=== PATIENT | male | born 1955 | race Caucasian/White ===

== ENCOUNTER 2018-06-23 08:54 | Inpatient (IN) | payer BC, MEDICARE ==
[~2018-06-23] VITALS: Ht 162.6 cm; Wt 88.0 kg
[~2018-06-23 08:54] MED LIST: ALLO100 PO; ASCO500 PO; AZELASTINE137 MCG/0.; Accuretic 10-11 EACH; CEPH500 PO; DIPH50 PO; FLONASE ALLERG9.9 ML NS; Flovent Diskus50 MCG; MOMENI; MULVITMIND; NAPR500EC; NIFE60ER; OXYACE5T PO; OXYM.05NI; PRED20 PO; PREVACID; Percocet 5-3251 EACH PO; Prevacid15 M2; TEMA30; TOCO400 PO; ZOLP10; [UNRECOGNIZED DRUG - REMARK]; [UNRECOGNIZED DRUG - REMARK]; [UNRECOGNIZED DRUG - REMARK]
[2018-06-23 09:20] LABS: Calcium, Ionized (POC) 1.15 mmol/L (1.10-1.46); Chloride (POC) 98 mmol/L (98-108); Glucose (ISTAT POC) 125 mg/dL (70-99); Sodium (POC) 138 mmol/L (135-148); Total CO2 (POC) 26 mmol/L (21-32)
[2018-06-23 09:25] LABS: Hematocrit 48.5 % (37.0-53.0); Hemoglobin 17.1 g/dL (13.5-17.5); Mean Corpuscular HGB 32.3 pg (26.0-34.0); Mean Corpuscular HGB Conc 35.3 g/dL (31.5-36.5); Mean Corpuscular Volume 92 fL (80-100); Mean Platelet Volume 10.2 fL (9.1-12.4); Platelet Count 221 K/mm3 (150-400); RDW Coefficient Variation 12.2 % (11.7-14.2); RDW Standard Deviation 40.8 fL (35.1-46.3); White Blood Cell Count 10.65 K/mm3 (4.00-11.30)
[2018-06-23 09:41] LABS: Alanine Aminotransfer (ALT/SGP 40 U/L (12-78); Albumin, Blood 3.9 g/dL (3.4-5.0); Albumin/Globulin Ratio 0.8 (0.8-1.8); Alk Phos 60 U/L (50-136); Anion Gap 9 mmol/L (6-16); Aspartate Aminotrans (AST/SGOT 38 U/L (12-37); Bilirubin, Total 0.5 mg/dL (0.1-1.0); Blood Urea Nitrogen 20 mg/dL (8-24); Bun/Creatinine Ratio 22.3 (12.0-20.0); CHOL/HDL RATIO 3.7; CO2, Blood 28 mmol/L (21-32); Calcium, Blood 9.8 mg/dL (8.5-10.1); Chloride, Blood 101 mmol/L (98-108); Cholesterol 148 mg/dL (50-200); Globulin, Blood 4.8 g/dL (2.2-4.0); Glomerular Filtration Rate >60 (60-); Glucose, Blood 122 mg/dL (70-99); HDL Cholesterol 40 mg/dL (>39); International Normalized Ratio 1.01; LDL/HDL RATIO 2.1; Low Density Lipoprotein Chol 84 mg/dL (0-110); Magnesium, Blood 1.9 mg/dL (1.6-2.4); Potassium, Blood 4.1 mmol/L (3.5-5.5); Prothrombin Time Results 10.4 Sec (9.7-11.5); Sodium, Blood 138 mmol/L (136-145); Total Protein, Blood 8.7 g/dL (6.4-8.2); Triglycerides 122 mg/dL (30-160); Very Low Density Lipoprot Chol 24 mg/dL (6-32)
[2018-06-23] MEDS ORDERED: PROP10 PO (11:59)
[2018-06-23] MEDS ORDERED: GABA100 PO (12:00)
[2018-06-23] MEDS ORDERED: VERA120ERB PO (12:06)
[2018-06-23] MEDS ORDERED: BUTONI (12:08)
[2018-06-23] MEDS ORDERED: XARELTO20 MG PO (12:09)
[2018-06-23] MEDS ORDERED: ZESTORETIC 20-121 EA PO (12:19)
[2018-06-23] MEDS ORDERED: LISI20 PO (12:20)
[2018-06-23] MEDS ORDERED: Lipitor20 MG PO (12:20)
[2018-06-23] MEDS ORDERED: LANS30EC PO (12:22)
[2018-06-23] MEDS ORDERED: Hair, Skin & N1 EACH PO (12:25)
[2018-06-23] MEDS ORDERED: SOMA350 MG PO (12:26)
[2018-06-23 17:44] LABS: CHOL/HDL RATIO 3.4; Cholesterol 131 mg/dL (50-200); HDL Cholesterol 39 mg/dL (>39); LDL/HDL RATIO 1.8; Low Density Lipoprotein Chol 72 mg/dL (0-110); Triglycerides 100 mg/dL (30-160); Very Low Density Lipoprot Chol 20 mg/dL (6-32)
[2018-06-26 03:44] LABS: BASOPHILS ABSOLUTE AUTO 0.04 K/mm3 (0.00-0.23); BASOPHILS PERCENT AUTO 1 % (0-2); EOSINOPHILS ABSOLUTE AUTO 0.17 K/mm3 (0.00-0.68); EOSINOPHILS PERCENT AUTO 2 % (0-6); Hematocrit 46.1 % (37.0-53.0); Hemoglobin 15.4 g/dL (13.5-17.5); IMMATURE GRAN ABSOLUTE AUTO 0.05 K/mm3 (0.00-0.10); IMMATURE GRAN PERCENT AUTO 1 % (0-1); LYMPHOCYTES ABSOLUTE AUTO 3.25 K/mm3 (0.84-5.20); LYMPHOCYTES PERCENT AUTO 37 % (21-46); MONOCYTES ABSOLUTE AUTO 0.87 K/mm3 (0.16-1.47); MONOCYTES PERCENT AUTO 10 % (4-13); Mean Corpuscular HGB 31.5 pg (26.0-34.0); Mean Corpuscular HGB Conc 33.4 g/dL (31.5-36.5); Mean Corpuscular Volume 94 fL (80-100); NEUTROPHILS ABSOLUTE AUTO 4.39 K/mm3 (1.96-9.15); NEUTROPHILS PERCENT AUTO 50 % (41-73); Platelet Count 178 K/mm3 (150-400); RDW Coefficient Variation 12.6 % (11.7-14.2); RDW Standard Deviation 43.3 fL (35.1-46.3); Red Blood Cell Count 4.89 M/mm3 (4.30-5.90); White Blood Cell Count 8.77 K/mm3 (4.00-11.30)
[2018-06-26 04:03] LABS: Alanine Aminotransfer (ALT/SGP 33 U/L (12-78); Albumin, Blood 3.3 g/dL (3.4-5.0); Albumin/Globulin Ratio 0.8 (0.8-1.8); Alk Phos 47 U/L (50-136); Anion Gap 8 mmol/L (6-16); Aspartate Aminotrans (AST/SGOT 29 U/L (12-37); Bilirubin, Total 0.4 mg/dL (0.1-1.0); Blood Urea Nitrogen 26 mg/dL (8-24); Bun/Creatinine Ratio 24.3 (12.0-20.0); CO2, Blood 30 mmol/L (21-32); Calcium, Blood 9.1 mg/dL (8.5-10.1); Chloride, Blood 105 mmol/L (98-108); Creatinine, Blood 1.07 mg/dL (0.60-1.20); Globulin, Blood 4.1 g/dL (2.2-4.0); Glomerular Filtration Rate >60 (60-); Glucose, Blood 93 mg/dL (70-99); Potassium, Blood 4.2 mmol/L (3.5-5.5); Sodium, Blood 143 mmol/L (136-145); Total Protein, Blood 7.4 g/dL (6.4-8.2)
[2018-06-26] MEDS ORDERED: CLOP75 PO (10:59)
[2018-06-26] MEDS ORDERED: ASPI81CH PO (10:59)
[2018-06-26] MEDS ORDERED: NITR.4SL SL (11:00)
[2018-06-26] MEDS ORDERED: METO25ER PO (11:04)
== END 2018-06-26 12:30 | disposition home or self-care (01) | DRG 247 ==
LOC: ER 08:54 → ICUW 09:12 → ICUE 09:12 → PCU 09:12 → ICUE 11:05 → PCU 06-24 15:40
PROVIDERS: Emergency Medicine; Internal Medicine; Internal Medicine Cardiovascular Disease
PROC: 027034Z Dilation of Coronary Artery, One Artery with Drug-eluting Intraluminal Device, Percutaneous Approach (ICD-10-PCS; principal; 2018-06-23)
PROC: 02703ZZ Dilation of Coronary Artery, One Artery, Percutaneous Approach (ICD-10-PCS; 2018-06-23)
PROC: 4A023N7 Measurement of Cardiac Sampling and Pressure, Left Heart, Percutaneous Approach (ICD-10-PCS; 2018-06-23)
PROC: B2111ZZ Fluoroscopy of Multiple Coronary Arteries using Low Osmolar Contrast (ICD-10-PCS; 2018-06-23)
PROC: B2151ZZ Fluoroscopy of Left Heart using Low Osmolar Contrast (ICD-10-PCS; 2018-06-23)
PROC: B240ZZ3 Ultrasonography of Single Coronary Artery, Intravascular (ICD-10-PCS; 2018-06-23)
DX: I21.19 ST elevation (STEMI) myocardial infarction involving other coronary artery of inferior wall (principal); I25.10 Atherosclerotic heart disease of native coronary artery without angina pectoris; G43.909 Migraine, unspecified, not intractable, without status migrainosus; I10 Essential (primary) hypertension; I48.0 Paroxysmal atrial fibrillation; I49.5 Sick sinus syndrome; E78.5 Hyperlipidemia, unspecified; M10.9 Gout, unspecified; B19.20 Unspecified viral hepatitis C without hepatic coma; Z91.041 Radiographic dye allergy status; Z86.73 Personal history of transient ischemic attack (TIA), and cerebral infarction without residual deficits; Z86.718 Personal history of other venous thrombosis and embolism; Z87.891 Personal history of nicotine dependence; Z79.01 Long term (current) use of anticoagulants; Z79.899 Other long term (current) drug therapy
CPT/HCPCS: 36415; 80047; 80053; 80061; 83735; 84484; 85014; 85025; 85027; 85347; 85610; 85730; 86850; 86900; 86901; 92978; 93005; 93010; 93306; 93458; 94660; 94762; 96374; 96375; 99152; 99153; 99285-25; C1725; C1753; C1769; C1874; C1894; C9606; J0461; J1100; J1200; J1644; J2250; J2765; J3010; J3475; J7030; Q0163; Q9967

== ENCOUNTER 2019-02-19 07:09 | Inpatient (IN) | payer BC, MEDICARE ==
[~2019-02-19] VITALS: Ht 160 cm; Wt 87.9 kg
[~2019-02-19 07:09] MED LIST changes: +ASPI81CH PO; +ATOR80 PO; +BUTONI; +CLOP75 PO; +GABA100 PO; +Hair, Skin & N1 EACH PO; +LANS30EC PO; +LISI20 PO; +METO100ER PO; +NITR.4SL SL; +PROP10 PO; +SOMA350 MG PO; +VERA120ERB PO; +XARELTO20 MG PO; +ZESTORETIC 20-121 EA PO
[2019-02-19 07:43] LABS: BASOPHILS ABSOLUTE AUTO 0.04 K/mm3 (0.00-0.23); BASOPHILS PERCENT AUTO 1 % (0-2); EOSINOPHILS ABSOLUTE AUTO 0.13 K/mm3 (0.00-0.68); EOSINOPHILS PERCENT AUTO 2 % (0-6); Hematocrit 42.3 % (37.0-53.0); Hemoglobin 14.8 g/dL (13.5-17.5); IMMATURE GRAN ABSOLUTE AUTO 0.03 K/mm3 (0.00-0.10); IMMATURE GRAN PERCENT AUTO 0 % (0-1); LYMPHOCYTES ABSOLUTE AUTO 2.19 K/mm3 (0.84-5.20); LYMPHOCYTES PERCENT AUTO 29 % (21-46); MONOCYTES ABSOLUTE AUTO 0.82 K/mm3 (0.16-1.47); MONOCYTES PERCENT AUTO 11 % (4-13); Mean Corpuscular HGB 32.5 pg (26.0-34.0); Mean Corpuscular Volume 93 fL (80-100); NEUTROPHILS ABSOLUTE AUTO 4.48 K/mm3 (1.96-9.15); NEUTROPHILS PERCENT AUTO 58 % (41-73); Platelet Count 163 K/mm3 (150-400); RDW Coefficient Variation 12.5 % (11.7-14.2); RDW Standard Deviation 42.8 fL (35.1-46.3); Red Blood Cell Count 4.56 M/mm3 (4.30-5.90); White Blood Cell Count 7.69 K/mm3 (4.00-11.30)
[2019-02-19 08:41] LABS: Troponin I <0.015 ng/mL (0.000-0.040)
[2019-02-19 08:42] LABS: Alanine Aminotransfer (ALT/SGP 37 U/L (12-78); Albumin, Blood 3.6 g/dL (3.4-5.0); Alk Phos 50 U/L (50-136); Anion Gap 9 mmol/L (6-16); Aspartate Aminotrans (AST/SGOT 27 U/L (12-37); Bilirubin, Total 0.3 mg/dL (0.1-1.0); Blood Urea Nitrogen 27 mg/dL (8-24); Bun/Creatinine Ratio 32.3 (12.0-20.0); CO2, Blood 28 mmol/L (21-32); Calcium, Blood 8.7 mg/dL (8.5-10.1); Chloride, Blood 103 mmol/L (98-108); Creatinine, Blood 0.84 mg/dL (0.60-1.20); Globulin, Blood 3.5 g/dL (2.2-4.0); Glomerular Filtration Rate >60 (60-); Glucose, Blood 113 mg/dL (70-99); Potassium, Blood 3.8 mmol/L (3.5-5.5); Sodium, Blood 140 mmol/L (136-145); Total Protein, Blood 7.1 g/dL (6.4-8.2)
[2019-02-19 10:11] LABS: Source, Urine Voided
[2019-02-19 10:14] LABS: Appearance, Urine Clear (Clear); Bilirubin, Urine Neg (Neg); Blood, Urine Neg (Neg); Color, Urine Yellow (P-Yellow); Glucose Qualitative, Urine Neg (Neg); Ketones, Urine Neg (Neg); Leukocyte Esterase, Urine Neg (Neg); Nitrite, Urine Neg (Neg); Protein, Urine Neg (Neg); Specific Gravity, Urine 1.015 (1.003-1.022); Urobilinogen, Urine NORM (Normal)
[2019-02-19] MEDS ORDERED: HYDCHL25 PO (12:20)
[2019-02-19] MEDS ORDERED: ATOR80 PO (12:21)
--- NOTE | 2019-02-19 13:52 | NUR ---
ASSUMED CARE ASSUMED CARE OF PT APPROX [id number]. PT ARRIVED TO UNIT VIA GURNEY. PT ABLE TO AMBULATE FROM GURNERY TO BED. ORIENTED PT TO ROOM, UNIT, AND POLICIES. ADDMISSION PROCESS COMPLETED. ASSESSMENT COMPLETED. VITAL SIGNS STABLE. PT HEART RHYTHM SINUS ANJELICA WITH HEART RATE IN 50'S. PT DENIES ANY CHEST PAIN AT THIS TIME. NO S/SX OF ACUTE DISTRESS. AT BEDSIDE. BED IN LOW POSITION, CALL LIGHT IN REACH AND PT DENIES ANY NEEDS AT THIS TIME. WILL CONTINUE TO MONITOR.
--- NOTE | 2019-02-19 14:59 | NUR ---
DISCHARGE DISCHARE INFORMATION REVIEWED WITH PATIENT AND FAMILY. QUESTIONS ANSWERED. NO S/SX OF ACUTE DISTRESS. PT STABLE. PT ABLE TO AMBULATE FROM BED TO WHEELCHAIR. LABOR TRAINING MANAGER TO AUTOMOBILE VIA WHEELCHAIR BY PEER STAFF MEMBER APPROX. [id number]
--- NOTE | 2019-02-19 17:51 | NUR ---
SHIFT SUMMARY PT PLEASANT, COOPERATIVE AND USES CALL LIGHT APPROPRIATELY. ASSESSMENT FINDINGS REMAIN UNCHANGED FROM ARRIVAL TO UNIT. PT DENIES ANY CHEST PAIN. STATES CHEST PAIN HAS NOT RETURNED SINCE ARRIVING TO UNIT. AT BEDSIDE INTERMITTENTLY. PT ABLE TO AMUBALTE TO BATHROOM NEEDED AND TOELRATED WELL. HEART RHYTHM REMAINS SINUS ANJELICA IN 50'S AND OCCASIONS INTO 60'S. DRAFTER MARINE IN TO SEE PT THIS EVENING. CARDIOLOIGST STATES PLAN IS TO COMPLETE ANGIO TOMORROW 02/20/19. PT TO BE NPO AT MIDNIGHT TONIGHT. BED IN LOW POSITION, CALL LIGHT IN REACH AND PT DENIES ANY NEEDS AT THIS TIME. WILL CONTINUE TO MONITOR UNTIL HANDOFF TO NIGHTSHIFT RN.
--- NOTE | 2019-02-20 03:29 | NUR ---
ASSUMED CARE OF PATIENT AT APPROXIMATELY 1915 FROM BREANA Bryant RN. PATIENT ALERT AND ORIENTED X4; INDEPENDENT IN ROOM. PATIENT DENIED PAIN AT START OF SHIFT BUT LATER COMPLAINED OF A "MIGRAINE"; MEDICATED PER EMAR; PATIENT DROPPED FROM A 10 TO 7 WITHIN MINUTES; LIGHT DOESNT BOTHER EYES. PATIENT DENIES CP/PRESSURE, NUMBNESS, TINGLING, DIZZNESS AND NAUSEA. PATIENT ANXIOUS AT TIMES; ANXIOUS. PATIENT REPORTS ANGIO 10; REPORTS RELIEVED ABOUT GETTING ANGIO; APPEARED ANXIOUS ABOUT ALLERGY TO IODINE; PATIENT DISCUSSED W/ OFFICE EXECUTIVE; MEDICATIONS SCHEDULED FOR PROPHYLAXIS. SB/SR ON TELE; LOWEST HR THIS SHIFT WAS 49; OXYGEN SATURATION ABOVE 90% ON ROOM AIR. PIV S/L. NPO SINCE MIDNIGHT. STARCH CRAB JAYLEN ASSISTING IN CARE. PATIENT CURRENTLY SLEEPING IN BED; CALL LIGHT IN REACH; BED IN LOWEST POSISTION; WILL CONTINUE TO MONITOR AND ASSESS UNTIL END OF SHIFT.
[2019-02-20 04:38] LABS: BASOPHILS ABSOLUTE AUTO 0.05 K/mm3 (0.00-0.23); BASOPHILS PERCENT AUTO 1 % (0-2); EOSINOPHILS PERCENT AUTO 3 % (0-6); Hematocrit 40.7 % (37.0-53.0); IMMATURE GRAN ABSOLUTE AUTO 0.02 K/mm3 (0.00-0.10); IMMATURE GRAN PERCENT AUTO 0 % (0-1); LYMPHOCYTES ABSOLUTE AUTO 2.54 K/mm3 (0.84-5.20); LYMPHOCYTES PERCENT AUTO 34 % (21-46); MONOCYTES ABSOLUTE AUTO 0.73 K/mm3 (0.16-1.47); MONOCYTES PERCENT AUTO 10 % (4-13); Mean Corpuscular HGB 31.4 pg (26.0-34.0); Mean Corpuscular HGB Conc 34.4 g/dL (31.5-36.5); Mean Corpuscular Volume 91 fL (80-100); Mean Platelet Volume 9.7 fL (9.1-12.4); NEUTROPHILS ABSOLUTE AUTO 3.96 K/mm3 (1.96-9.15); NEUTROPHILS PERCENT AUTO 53 % (41-73); Platelet Count 144 K/mm3 (150-400); RDW Coefficient Variation 12.3 % (11.7-14.2); RDW Standard Deviation 40.8 fL (35.1-46.3); Red Blood Cell Count 4.46 M/mm3 (4.30-5.90)
[2019-02-20 04:59] LABS: Anion Gap 6 mmol/L (6-16); Blood Urea Nitrogen 21 mg/dL (8-24); CHOL/HDL RATIO 3.3; CO2, Blood 29 mmol/L (21-32); Calcium, Blood 8.4 mg/dL (8.5-10.1); Chloride, Blood 103 mmol/L (98-108); Cholesterol 96 mg/dL (50-200); Creatinine, Blood 0.84 mg/dL (0.60-1.20); Glomerular Filtration Rate >60 (60-); Glucose, Blood 95 mg/dL (70-99); HDL Cholesterol 29 mg/dL (>39); LDL/HDL RATIO 1.4; Low Density Lipoprotein Chol 41 mg/dL (0-110); Magnesium, Blood 2.2 mg/dL (1.6-2.4); Potassium, Blood 3.9 mmol/L (3.5-5.5); Sodium, Blood 138 mmol/L (136-145); Triglycerides 128 mg/dL (30-160); Troponin I 0.028 ng/mL (0.000-0.040); Very Low Density Lipoprot Chol 25 mg/dL (6-32)
--- NOTE | 2019-02-20 08:20 | NUR ---
NURSING PCU DAYSHIFT: Assumed care of pt at approx 0700. A/O, cooperative w/care. Ambulates independently and w/o difficulty. Skin is intact w/no breakdown noted. Denies any general pain/discomfort. Tele in place, NSR, no c/o CP/pressure, SBP 120's prior to a.m. meds, no noted edema. L/S cta t/o, O2 sat mid 90's on RA, denies dyspnea, occ cough producing clear sputum. Abd SNT, BT+, c/o mild epigastric discomfort/reflux, voiding w/o difficulty. PIV x1, NS infusing at 100cc/hr. No s/s of acute distress this a.m. Recommended repositioning of bed to reduce reflux. HC staff at bedside this a.m. to prep for scheduled angiogram, notified staff of iodine allergy and ordered meds prior to procedure. Transported to HC via bed, denied questions/needs at that time.
--- NOTE | 2019-02-20 15:16 | NUR ---
Called to the pt's room for beeping IV pump. Checked IV site and verfied patency. Site is WNL. Checked right groin site. Primary RN stated that the right groin has had some swelling, but without evidence of hematoma or bleeding. Noted swelling, but area surrounding is soft, and the pt denies pain. No evidence of bleeding. Small area of bruising underneath the tegederm CHG noted near the puncture site, and pt states that "they had a hard time stopping the bleeding". Dressing is clean, dry and intact. Distal pulses dorsalis pedis and posterior tibial equal and easily palpable bilaterally. Toes are pink, warm, with capillary refill less than 3 seconds.
--- NOTE | 2019-02-20 17:59 | NUR ---
NURSING PCU DAYSHIFT SUMMARY: Pt to this a.m. for angiogram. Returned to room for recovery after stent placement. R groin site present, sterile dressing w/gauze in place, small amt of swelling noted surrounding site, soft w/no active bleeding or hematoma noted. Recovered as per protocol w/o difficulty. Pt has been ambulating in room and t/o halls, site remains stable. No s/s of acute distress at this time. Call light in reach, pt denies any questions/needs, cont to monitor until rpt is given to NOC RN.
--- NOTE | 2019-02-21 02:04 | NUR ---
ALLERGIC REACTION PATIENT HAS BEEN COMPLAINING OF A MIGRAINE THROUGHOUT THE NIGHT WITH MINIMAL RELIEF FROM PAIN MEDICATION. PATIENT JUST NOW INFORMED GRINDER CHIPPER THAT HE WAS FLUSHED, FEELING HOT, AND THAT HIS CHEST WAS ITCHY. HE STATED THAT HE FELT THIS SAME WAY AFTER THE LAST TIME HE HAD RECEIVED CONTRAST DYE WELL. PATIENT HAS A KNOWN ALLERGY TO IODINE. HE STATED THAT IT WAS ABOUT THIS TIME IN THE AM THAT HE HAD THE SYMPTOMS THE LAST TIME WELL. CHARGE NURSE DAE MORRISON CONTACTED DR REEVES AND INFORMED HIM OF THE SITUATION. ORDERS WERE RECIVED AND BENADRYL PROVIDED TO PATIENT. PATIENT ALREADY LOOKING LESS FLUSHED AND STATES HE IS FEELING LESS ITCHY AND HIS MIGRAINE IS NOW A 4/10 INSTEAD OF THE 10/10 THAT IT WAS. PATIENT DENIED ANY SOB THROUGHOUT THE EPISODE. PATIENT NOW LAYING IN BED RESTING AND TRYING TO FALL ASLEEP. WILL CONTINUE TO MONITOR PATIENT.
--- NOTE | 2019-02-21 03:10 | NUR ---
UPDATE AFTER BENADRYL AND PAIN MEDICATION PROVIDED TO PATIENT. PATIENT STARTED TO FEEL MUCH BETTER. HE BECAME LESS FLUSHED, HEAD HEADACHE IMPROVED, AND HIS CHEST WAS LESS ITCHY. HOWEVER, ABOUT 10 MINUTES LATER PATIENT BEGAN TO BECOME FLUSHED AGAIN, HIS HEADACHE STARTED COMING BACK AND HIS CHEST WAS BECOMING SLIGHTLY ITCHY AGAIN. PATIENT CONTINUES TO DENY ANY SOB AND HIS BREATHING APPEARS EVEN AND UNLABORED AT THIS TIME. DR REEVES NOTIFIED. AN ORDER FOR SOLUMEDROL RECEIVED.
[2019-02-21 04:24] LABS: BASOPHILS ABSOLUTE AUTO 0.03 K/mm3 (0.00-0.23); BASOPHILS PERCENT AUTO 0 % (0-2); EOSINOPHILS ABSOLUTE AUTO 0.01 K/mm3 (0.00-0.68); EOSINOPHILS PERCENT AUTO 0 % (0-6); Hematocrit 44.4 % (37.0-53.0); Hemoglobin 15.1 g/dL (13.5-17.5); IMMATURE GRAN ABSOLUTE AUTO 0.11 K/mm3 (0.00-0.10); IMMATURE GRAN PERCENT AUTO 1 % (0-1); LYMPHOCYTES ABSOLUTE AUTO 1.77 K/mm3 (0.84-5.20); LYMPHOCYTES PERCENT AUTO 9 % (21-46); MONOCYTES ABSOLUTE AUTO 1.51 K/mm3 (0.16-1.47); MONOCYTES PERCENT AUTO 8 % (4-13); Mean Corpuscular HGB 31.7 pg (26.0-34.0); Mean Corpuscular Volume 93 fL (80-100); Mean Platelet Volume 10.3 fL (9.1-12.4); NEUTROPHILS ABSOLUTE AUTO 15.55 K/mm3 (1.96-9.15); NEUTROPHILS PERCENT AUTO 82 % (41-73); Platelet Count 209 K/mm3 (150-400); RDW Coefficient Variation 12.7 % (11.7-14.2); RDW Standard Deviation 42.9 fL (35.1-46.3); Red Blood Cell Count 4.77 M/mm3 (4.30-5.90); White Blood Cell Count 18.98 K/mm3 (4.00-11.30)
[2019-02-21 04:44] LABS: Anion Gap 7 mmol/L (6-16); Blood Urea Nitrogen 17 mg/dL (8-24); Bun/Creatinine Ratio 20.2 (12.0-20.0); CO2, Blood 28 mmol/L (21-32); Calcium, Blood 9.2 mg/dL (8.5-10.1); Chloride, Blood 104 mmol/L (98-108); Creatinine, Blood 0.84 mg/dL (0.60-1.20); Glomerular Filtration Rate >60 (60-); Glucose, Blood 132 mg/dL (70-99); Potassium, Blood 4.4 mmol/L (3.5-5.5); Sodium, Blood 139 mmol/L (136-145)
--- NOTE | 2019-02-21 06:23 | NUR ---
SHIFT SUMMARY PATIENT STARTED TO FEEL BETTER AFTER THE SOLUMEDROL WAS GIVEN. PATIENT BECAME LESS FLUSHED AND HIS CHEST BECAME LESS ITCHY. PATIENT'S HEADACHE STARTED TO FEEL BETTER AFTER BEING MEDICATED FOR PAIN PER EMAR. PATIENT CURRENTLY APPEARS TO BE ASLEEP. CPAP IN PLACE. PATIENT'S RIGHT WRIST ANGIO ACCESS SITE CONTINUES TO HAVE A SMALL SPOT OF OLD BLOOD PRESENT BUT NO SIGNS OF FURTHER BLEEDING OR HEMATOMA FORMATION NOTED. ARMBOARD IN PLACE. PATIENT'S RIGHT GROIN ANGIO ACCESS SITE CONTINUES TO HAVE SOME SWELLING AND BRUISING AT SITE BUT THE SWELLING DOES NOT APPEAR TO HAVE CHANGED SINCE THE BEGINNING OF THE SHIFT. WILL CONTINUE TO MONITOR PATIENT AND REPORT TO ONCOMING RN.
--- NOTE | 2019-02-21 07:47 | NUR ---
NURSING PCU DAYSHIFT: Assumed care of pt at approx 0700. A/O, pleasant, cooperative w/care. C/O 05/22 migraine, treating w/meds as ordered, lights dimmed. Ambulates independently and w/o difficulty. R groin site r/t angio from previous day, bruising and mild swelling noted, soft w/no hematoma present, dressing intact. Tele in place, NSR w/1st degree AV block, no c/o cardiac related CP/pressure, SBP 150's prior to a.m. meds, no noted edema. L/S cta t/o, O2 sat stable on RA, denies dyspnea, occ cough producing clear/stringy sputum. Abd SNT, BT+, c/o reflux/epigastric discomfort which worsens when lying flat, voiding w/o difficulty per pt. PIV s/l. Pt denies any current needs or questions regarding plan of care. Anticpating discharge home. Awaiting rounding from PMD and signals intelligence analysis manager. Call light remains in reach, cont to monitor for any changes.
--- NOTE | 2019-02-21 11:50 | NUR ---
NURSING PCU DISCHARGE SUMMARY: No acute changes noted t/o the a.m. Seen by PMD and special ed assistant, discharge home medications discussed. Awaiting discharge home d/o, tele removed, PIV to be removed prior to dc home. Pt and s/o deny any current questions/needs, call light in reach, cont to monitor until discharge is completed.
[2019-02-22] MEDS ORDERED: LO-DOSE ASPIRIN81 MG PO (12:29)
[2019-02-22] MEDS ORDERED: Isosorbide Mono30 MG PO (12:31)
[2019-02-22] MEDS ORDERED: Carisoprodol350 MG PO (12:32)
[2019-02-22] MEDS ORDERED: Flonase 0.05% N16 GM (12:34)
== END 2019-02-21 13:38 | disposition home or self-care (01) | DRG 248 ==
LOC: ER 07:09 → PCU 07:10
PROVIDERS: Emergency Medicine; Internal Medicine Cardiovascular Disease; ADMIT Internal Medicine
PROC: B2111ZZ Fluoroscopy of Multiple Coronary Arteries using Low Osmolar Contrast (ICD-10-PCS; principal; 2019-02-20)
PROC: 02713GZ Dilation of Coronary Artery, Two Arteries with Four or More Intraluminal Devices, Percutaneous Approach (ICD-10-PCS; 2019-02-20)
PROC: 4A023N7 Measurement of Cardiac Sampling and Pressure, Left Heart, Percutaneous Approach (ICD-10-PCS; 2019-02-20)
PROC: B240ZZ3 Ultrasonography of Single Coronary Artery, Intravascular (ICD-10-PCS; 2019-02-20)
DX: I21.19 ST elevation (STEMI) myocardial infarction involving other coronary artery of inferior wall (principal); I25.2 Old myocardial infarction; Z95.5 Presence of coronary angioplasty implant and graft; E03.9 Hypothyroidism, unspecified; Z79.82 Long term (current) use of aspirin; I48.0 Paroxysmal atrial fibrillation; M10.9 Gout, unspecified; E78.5 Hyperlipidemia, unspecified; Z86.718 Personal history of other venous thrombosis and embolism; I25.110 Atherosclerotic heart disease of native coronary artery with unstable angina pectoris; E66.3 Overweight; Z68.34 Body mass index [BMI] 34.0-34.9, adult; G43.409 Hemiplegic migraine, not intractable, without status migrainosus; H53.47 Heteronymous bilateral field defects; I10 Essential (primary) hypertension; Z87.891 Personal history of nicotine dependence
CPT/HCPCS: 36415; 71046; 80048; 80053; 80061; 81003; 83690; 83735; 83880; 84484; 85025; 85347; 92921; 92978; 93005; 93010; 93306; 93458; 94762; 96361; 96374; 96375; 99152; 99153; 99285-25; C1725; C1753; C1760; C1769; C1874; C1894; C9600; J0360; J1200; J1644; J1720; J2250; J2405; J2920; J2930; J3010; J3490; J7030; Q9967

== ENCOUNTER 2019-02-22 08:11 | Inpatient (IN) | payer BC, MEDICARE ==
[~2019-02-22] VITALS: Ht 160 cm; Wt 87.6 kg
[~2019-02-22 08:11] MED LIST changes: +HYDCHL25 PO
[2019-02-22 09:14] LABS: BASOPHILS ABSOLUTE AUTO 0.03 K/mm3 (0.00-0.23); BASOPHILS PERCENT AUTO 0 % (0-2); EOSINOPHILS PERCENT AUTO 0 % (0-6); Hematocrit 40.8 % (37.0-53.0); Hemoglobin 13.9 g/dL (13.5-17.5); IMMATURE GRAN ABSOLUTE AUTO 0.12 K/mm3 (0.00-0.10); IMMATURE GRAN PERCENT AUTO 1 % (0-1); LYMPHOCYTES ABSOLUTE AUTO 1.88 K/mm3 (0.84-5.20); LYMPHOCYTES PERCENT AUTO 14 % (21-46); MONOCYTES ABSOLUTE AUTO 1.52 K/mm3 (0.16-1.47); MONOCYTES PERCENT AUTO 11 % (4-13); Mean Corpuscular HGB 32.3 pg (26.0-34.0); Mean Corpuscular HGB Conc 34.1 g/dL (31.5-36.5); Mean Corpuscular Volume 95 fL (80-100); Mean Platelet Volume 10.2 fL (9.1-12.4); NEUTROPHILS ABSOLUTE AUTO 10.31 K/mm3 (1.96-9.15); NEUTROPHILS PERCENT AUTO 74 % (41-73); Platelet Count 173 K/mm3 (150-400); RDW Standard Deviation 45.2 fL (35.1-46.3); Red Blood Cell Count 4.31 M/mm3 (4.30-5.90); White Blood Cell Count 13.86 K/mm3 (4.00-11.30)
[2019-02-22 10:12] LABS: Alanine Aminotransfer (ALT/SGP 37 U/L (12-78); Albumin, Blood 3.4 g/dL (3.4-5.0); Alk Phos 44 U/L (50-136); Anion Gap 6 mmol/L (6-16); Aspartate Aminotrans (AST/SGOT 78 U/L (12-37); Bilirubin, Total 0.7 mg/dL (0.1-1.0); Blood Urea Nitrogen 18 mg/dL (8-24); Bun/Creatinine Ratio 21.4 (12.0-20.0); CO2, Blood 28 mmol/L (21-32); Chloride, Blood 100 mmol/L (98-108); Creatinine, Blood 0.84 mg/dL (0.60-1.20); Globulin, Blood 3.4 g/dL (2.2-4.0); Glomerular Filtration Rate >60 (60-); Glucose, Blood 113 mg/dL (70-99); Potassium, Blood 3.7 mmol/L (3.5-5.5); Sodium, Blood 134 mmol/L (136-145); Total Protein, Blood 6.8 g/dL (6.4-8.2)
[2019-02-22] MEDS ORDERED: LO-DOSE ASPIRIN81 MG PO (12:29)
[2019-02-22] MEDS ORDERED: Isosorbide Mono30 MG PO (12:31)
[2019-02-22] MEDS ORDERED: Carisoprodol350 MG PO (12:32)
[2019-02-22] MEDS ORDERED: Flonase 0.05% N16 GM (12:34)
--- NOTE | 2019-02-22 18:07 | NUR ---
SUMMARY SHIFT RESUMED CARE OF PT AT 1600, OBTAINED REPORT FROM [facility] ER NURSE. PT WAS DISCHARGED YESTERDAY AND HAS NOW RETURED DUE TO CHEST PAIN. PT WAS GIVEN FENTYNAL AND STATED THAT CHEST PAIN HAS DECREASED. PT IS ALERT AND ORIENTED X4 AND IS GENERALLY IND AT HOME. PT IS STABLE ON HIS FEET, HOWEVER, HAS BEEN ASKED TO ASK FOR ASSISTANCE DUE TO CHEST PAIN. PT IS CURRENTLY ON ROOM AIR AND DENIES ANY SOB AT THIS TIME. WILL CONTINUE TO MONITOR FOR ANY ACUTE CHANGES. BED LOWERD AND CALL LIGHT IS WITHIN REACH.
--- NOTE | 2019-02-22 19:23 | NUR ---
ARRIVAL TO UNIT Assumed care of pt upon arrival to unit at 1600, with Esthela HART. Report recieved by Esthela HART from Yesi HATFIELD. Pt transferred from ED gurney to PCU bed with one person assist. Pt has denied chest pain since arrival to unit. States the most beneficial thing for his chest pain was fentanyl. Pt on room air. Atrial fibrillation per telemetry. Report given to Zara HATFIELD.
[2019-02-23 04:24] LABS: BASOPHILS ABSOLUTE AUTO 0.04 K/mm3 (0.00-0.23); BASOPHILS PERCENT AUTO 0 % (0-2); EOSINOPHILS ABSOLUTE AUTO 0.11 K/mm3 (0.00-0.68); EOSINOPHILS PERCENT AUTO 1 % (0-6); Hematocrit 46.5 % (37.0-53.0); Hemoglobin 15.8 g/dL (13.5-17.5); IMMATURE GRAN ABSOLUTE AUTO 0.06 K/mm3 (0.00-0.10); IMMATURE GRAN PERCENT AUTO 1 % (0-1); LYMPHOCYTES PERCENT AUTO 27 % (21-46); MONOCYTES ABSOLUTE AUTO 1.38 K/mm3 (0.16-1.47); MONOCYTES PERCENT AUTO 12 % (4-13); Mean Corpuscular HGB 31.7 pg (26.0-34.0); Mean Corpuscular Volume 93 fL (80-100); NEUTROPHILS ABSOLUTE AUTO 7.17 K/mm3 (1.96-9.15); NEUTROPHILS PERCENT AUTO 60 % (41-73); Platelet Count 180 K/mm3 (150-400); RDW Standard Deviation 43.8 fL (35.1-46.3); Red Blood Cell Count 4.99 M/mm3 (4.30-5.90); White Blood Cell Count 11.96 K/mm3 (4.00-11.30)
[2019-02-23 04:47] LABS: Anion Gap 5 mmol/L (6-16); Blood Urea Nitrogen 19 mg/dL (8-24); Bun/Creatinine Ratio 18.4 (12.0-20.0); CO2, Blood 32 mmol/L (21-32); Calcium, Blood 8.8 mg/dL (8.5-10.1); Chloride, Blood 99 mmol/L (98-108); Creatinine, Blood 1.03 mg/dL (0.60-1.20); Glomerular Filtration Rate >60 (60-); Glucose, Blood 94 mg/dL (70-99); Potassium, Blood 4.1 mmol/L (3.5-5.5); Sodium, Blood 136 mmol/L (136-145)
--- NOTE | 2019-02-23 18:11 | NUR ---
SHIFT SUMMARY PT RESTING IN BED THROUGHOUT THE DAY. UP TO BATHROOM WITH STANDBY ASSIST. VSS. PT DENIES CHEST PAIN TODAY, MEDICATED FOR HEADACHE AND BACK PAIN WITH PRN PAIN MEDS. ALERT AND ORIENTED X3. LUNG SOUNDS CLEAR, DIMINISHED BASES, AFIB ON TELEMETRY RATE IN THE 70s-80s. RIGHT GROIN BRUISING NOTED FROM OLD HEMATOMA, SITE SOFT, NO BLEED OR HEMATOMA AT THIS TIME. GAUZE DRSG CDI. PT TO HEART CENTER THIS AM. UPON RETURN, RIGHT WRIST SOFT, NO BLEED OR HEMATOMA, TR BAND CDI. AIR REMOVED PER PROTOCOL, NO BLEEDING NOTED. AT BEDSIDE FOR THIS AFTERNOON. WILL CONTINUE TO MONITOR.
--- NOTE | 2019-02-24 04:37 | NUR ---
SHIFT SUMMARY: PATIENT TOOK A SHOWER AND WENT FOR A WALK AROUND THE HOSPITAL.PATIENT'S HEART RHYTHM CHANGED TO NSR @ APROX 1700 AND REMAINED 60'S-70'S PER CLINICAL PROJECT ASSISTANT. BED IS IN LOW POSITION AND CALL LIGHT IS WITHIN REACH.
--- NOTE | 2019-02-24 13:20 | NUR ---
PT C/O 08/22 HEADACHE / MIGRAINE AND STATES CHEST PAIN 01/20 CAME ON AT THE SAME TIME THE HEADACHE STARTED, MEDICATED WITH PRN FENTANYL FOR PAIN. WILL CONTINUE TO MONITOR.
[2019-02-24] MEDS ORDERED: ASPI81CH PO (13:39)
--- NOTE | 2019-02-24 15:25 | NUR ---
DISCHARGE NOTE PT STABLE FOR DISCHARGE. IV X2 REMOVED. DISCHARGE INSTRUCTIONS, POST ANGIOGRAM INSTRUCTIONS AND DISCHARGE MEDICATIONS REVIEWED WITH PT AND . PT AND VERBALIZE UNDERSTANDING AND DENY QUESTIONS. PT DISCHARGED VIA WHEELCHAIR TO CAR WITH BELONGINGS.
== END 2019-02-24 14:16 | disposition home or self-care (01) | DRG 282 ==
LOC: ER 08:11 → PCU 14:46
PROVIDERS: Physician Assistant; ADMIT Internal Medicine
PROC: B2111ZZ Fluoroscopy of Multiple Coronary Arteries using Low Osmolar Contrast (ICD-10-PCS; principal; 2019-02-23)
DX: I22.2 Subsequent non-ST elevation (NSTEMI) myocardial infarction (principal); I21.4 Non-ST elevation (NSTEMI) myocardial infarction; I25.10 Atherosclerotic heart disease of native coronary artery without angina pectoris; I10 Essential (primary) hypertension; I48.0 Paroxysmal atrial fibrillation; E03.9 Hypothyroidism, unspecified; E78.5 Hyperlipidemia, unspecified; I67.9 Cerebrovascular disease, unspecified; G43.409 Hemiplegic migraine, not intractable, without status migrainosus; Z86.19 Personal history of other infectious and parasitic diseases; Z86.718 Personal history of other venous thrombosis and embolism; Z87.891 Personal history of nicotine dependence; Z95.5 Presence of coronary angioplasty implant and graft; Z88.8 Allergy status to other drugs, medicaments and biological substances; Z79.01 Long term (current) use of anticoagulants; Z79.02 Long term (current) use of antithrombotics/antiplatelets; Z79.899 Other long term (current) drug therapy
CPT/HCPCS: 36415; 70450; 71046; 80048; 80053; 84484; 85025; 93005; 93010; 93454; 96374; 96375; 99152; 99153; 99285-25; C1769; C1894; J1200; J1644; J1720; J2250; J2405; J3010; J3490; J7030; Q9967

== ENCOUNTER 2019-11-01 09:21 | Inpatient (IN) | payer MEDICARE, BC ==
[~2019-11-01] VITALS: Ht 160 cm; Wt 85.7 kg
[~2019-11-01 09:21] MED LIST changes: -ALLO100 PO; -CLOP75 PO; -GABA100 PO; -HYDCHL25 PO; +Isosorbide Mono30 MG PO; -LISI20 PO; +LO-DOSE ASPIRIN81 MG PO; -METO100ER PO; -NITR.4SL SL; -XARELTO20 MG PO
[2019-11-01 09:37] LABS: BASOPHILS ABSOLUTE AUTO 0.02 K/mm3 (0.00-0.23); BASOPHILS PERCENT AUTO 0 % (0-2); EOSINOPHILS PERCENT AUTO 1 % (0-6); Hematocrit 45.3 % (37.0-53.0); Hemoglobin 15.7 g/dL (13.5-17.5); IMMATURE GRAN ABSOLUTE AUTO 0.03 K/mm3 (0.00-0.10); IMMATURE GRAN PERCENT AUTO 0 % (0-1); LYMPHOCYTES ABSOLUTE AUTO 1.43 K/mm3 (0.84-5.20); LYMPHOCYTES PERCENT AUTO 16 % (21-46); MONOCYTES ABSOLUTE AUTO 0.91 K/mm3 (0.16-1.47); MONOCYTES PERCENT AUTO 10 % (4-13); Mean Corpuscular HGB Conc 34.7 g/dL (31.5-36.5); Mean Corpuscular Volume 92 fL (80-100); Mean Platelet Volume 9.5 fL (9.1-12.4); NEUTROPHILS ABSOLUTE AUTO 6.55 K/mm3 (1.96-9.15); NEUTROPHILS PERCENT AUTO 73 % (41-73); Platelet Count 162 K/mm3 (150-400); RDW Coefficient Variation 12.3 % (11.7-14.2); RDW Standard Deviation 41.4 fL (35.1-46.3); White Blood Cell Count 9.04 K/mm3 (4.00-11.30)
[2019-11-01 10:00] LABS: Alanine Aminotransfer (ALT/SGP 39 U/L (12-78); Albumin, Blood 3.9 g/dL (3.4-5.0); Albumin/Globulin Ratio 1.1 (0.8-1.8); Alk Phos 43 U/L (50-136); Anion Gap 8 mmol/L (6-16); Aspartate Aminotrans (AST/SGOT 58 U/L (12-37); Bilirubin, Total 0.7 mg/dL (0.1-1.0); Blood Urea Nitrogen 17 mg/dL (8-24); Bun/Creatinine Ratio 24.4 (12.0-20.0); CO2, Blood 29 mmol/L (21-32); Calcium, Blood 9.4 mg/dL (8.5-10.1); Chloride, Blood 98 mmol/L (98-108); Globulin, Blood 3.6 g/dL (2.2-4.0); Glomerular Filtration Rate >60 (60-); Glucose, Blood 107 mg/dL (70-99); Potassium, Blood 3.3 mmol/L (3.5-5.5); Sodium, Blood 135 mmol/L (136-145); Total Protein, Blood 7.5 g/dL (6.4-8.2)
[2019-11-01 10:58] LABS: International Normalized Ratio 1.03; Prothrombin Time Results 10.9 Sec (9.7-11.5)
[2019-11-01 11:51] LABS: Creatine Kinase MB 17.9 ng/mL (0.0-3.6); Creatine Kinase MB Index 5.6 (0.0-4.0)
[2019-11-01] MEDS ORDERED: TRAM50 PO (15:27)
[2019-11-01] MEDS ORDERED: Carisoprodol350 MG PO (15:28)
[2019-11-01] MEDS ORDERED: VERA240ER PO (15:29)
[2019-11-01] MEDS ORDERED: HYDROCODONE-AC1 EAC1 PO (15:29)
[2019-11-01] MEDS ORDERED: METO50ER PO (15:31)
[2019-11-01] MEDS ORDERED: XARELTO10 MG PO (15:32)
[2019-11-01] MEDS ORDERED: ZESTRIL40 M1 PO (15:33)
[2019-11-01] MEDS ORDERED: HYDCHL50 PO (15:34)
[2019-11-01] MEDS ORDERED: Flonase 0.05% N16 GM (15:35)
[2019-11-01] MEDS ORDERED: ATOR80 PO (15:36)
[2019-11-01] MEDS ORDERED: CLOP75 PO (15:36)
[2019-11-01] MEDS ORDERED: GABA300 PO (15:36)
[2019-11-01] MEDS ORDERED: Aspir 8181 MG PO (15:37)
--- NOTE | 2019-11-01 15:37 | NUR ---
ASSUMED CARE OF PATIENT AT 1520. PT AROUSES TO SPEECH, IS GROGGY, ABLE TO STATE NAME AND . AT BEDSIDE. STATES CHEST PAIN IS 4/10 AND MIGRAINE PAIN IS 7/10. WAS GIVEN MORPHINE PRIOR TO MY ASSUMPTION OF CARE. HRR IRREGULAR, NO PERIPHERAL EDEMA. LUNGS CTAB, O2 @ 2.5 L/MIN NC, 95%. SKIN WITH SCATTERED SCABS ON BUE ( STATES HE HAD "SOME SKIN CANCERS REMOVED.") EXPLAINED TO PT AND THAT PLAN IS TO GO TO THE [facility] FOR INTERVENTION. PER PREVIOUS RN, PT WAS PRE-MEDICATED FOR IODINE ALLERGY.
[2019-11-01] MEDS ORDERED: HYDMOR4 PO (15:38)
[2019-11-01] MEDS ORDERED: ALLO100 PO (15:38)
[2019-11-01] MEDS ORDERED: NITR.4SL SL (15:41)
--- NOTE | 2019-11-01 15:44 | NUR ---
PATIENT PICKED UP BY KB HATFIELD FROM PSYCHOLOGIST [facility]IN[facility], TAKEN BY BED AT 1533. IV MEDICATIONS TAKEN IN TOW.
--- NOTE | 2019-11-01 17:31 | NUR ---
PT RETURNED FROM HELP DESK SPECIALIST AT 1730 VIA HIS BED. L RADIAL TR BAND INFLATED WITH 15 ML AIR PER G. YOMI HATFIELD, FROM WHOM THIS AUTHOR RECEIVED FTF REPORT. NO HEMATOMA OR ACTIVE BLEEDING NOTED AT SITE. SPLINT PLACED AND PT RE-EDUCATED TO KEEP L ARM STILL AND TO REPORT INCREASED PAIN, NUMBNESS, TINGLING IN THAT EXTREMITY; VERBALIZED UNDERSTANDING. AROUSES EASILY TO SPEECH, ABLE TO STATE NAME, , AND LOCATION. DENIES CHEST PAIN AT THIS TIME. STILL HAS 6/[address] MAYS ATTEMPTED R RADIAL ACCESS, BUT WAS UNALBE TO COMPLETE; PT HAS GAUZE PRESSURE DRESSING ON R RADIAL SITE WITH NO HEMATOMA OR BLEEDING NOTED.
--- NOTE | 2019-11-01 18:07 | NUR ---
NOTIFIED PHARMACY THAT PT'S HEPARIN GTT WAS TURNED OFF WHEN HE LEFT FOR THE LEGAL PROCESS SPECIALIST AT 15[address]. [address] MAYS, HEPARIN GTT TO BE RESTARTED AFTER TR BAND REMOVED AND THERE IS NO E/O BLEEDING OR HEMTOMA. PTT ORDER HAS BEEN CANCELLED.
== END 2019-11-01 20:05 | disposition short-term general hospital (02) | DRG 282 ==
LOC: ER 09:21 → ICUW 11:27 → ICUE 12:07 → ICUW 17:41
PROVIDERS: Emergency Medicine; Nurse Practitioner Acute Care; Pharmacist; ADMIT Hospitalist
PROC: B2111ZZ Fluoroscopy of Multiple Coronary Arteries using Low Osmolar Contrast (ICD-10-PCS; principal; 2019-11-01)
DX: I21.4 Non-ST elevation (NSTEMI) myocardial infarction (principal); I25.2 Old myocardial infarction; E03.9 Hypothyroidism, unspecified; Z79.82 Long term (current) use of aspirin; Z87.891 Personal history of nicotine dependence; I48.91 Unspecified atrial fibrillation; Z86.73 Personal history of transient ischemic attack (TIA), and cerebral infarction without residual deficits; M10.9 Gout, unspecified; E78.5 Hyperlipidemia, unspecified; G47.33 Obstructive sleep apnea (adult) (pediatric); Z86.718 Personal history of other venous thrombosis and embolism; Z79.01 Long term (current) use of anticoagulants; Z95.5 Presence of coronary angioplasty implant and graft; E78.00 Pure hypercholesterolemia, unspecified
CPT/HCPCS: 36415; 71250; 80053; 82550; 82553; 83735; 84484; 85025; 85610; 85730; 93005; 93010; 93306; 93454; 96365; 96375; 96376; 99285-25; A9270; C1769; C1894; J1200; J1644; J1720; J2250; J2270; J2405; J2930; J3010; J7030; Q9967

== ENCOUNTER → 2020-04-22 | Outpatient (CLI) | payer MEDICARE, BC ==
[~2020-04-22] MED LIST changes: +ALLO100 PO; +Aspir 8181 MG PO; +CLOP75 PO; +Carisoprodol350 MG PO; +Flonase 0.05% N16 GM; +GABA300 PO; +HYDCHL50 PO; +HYDMOR4 PO; +HYDROCODONE-AC1 EAC1 PO; +METO50ER PO; +NITR.4SL SL; +TRAM50 PO; +VERA240ER PO; +XARELTO10 MG PO; +ZESTRIL40 M1 PO
== END | disposition home or self-care (01) ==
LOC: LAB SHORT 12:34 → PLD 12:34
DX: C44.519 Basal cell carcinoma of skin of other part of trunk (principal)
CPT/HCPCS: 88305

== ENCOUNTER 2020-08-19 00:28 | Emergency (ER) | payer MEDICARE, BC ==
[~2020-08-19] VITALS: Ht 160 cm; Wt 85.3 kg
== END 2020-08-19 04:35 | disposition home or self-care (01) ==
LOC: ER 00:28
DX: S89.91XA Unspecified injury of right lower leg, initial encounter (principal); I48.91 Unspecified atrial fibrillation; I10 Essential (primary) hypertension; E03.9 Hypothyroidism, unspecified; I25.10 Atherosclerotic heart disease of native coronary artery without angina pectoris; I25.2 Old myocardial infarction; Z79.02 Long term (current) use of antithrombotics/antiplatelets; Z86.73 Personal history of transient ischemic attack (TIA), and cerebral infarction without residual deficits; Z87.891 Personal history of nicotine dependence; Z91.041 Radiographic dye allergy status; Z79.899 Other long term (current) drug therapy; Z79.82 Long term (current) use of aspirin; Z79.01 Long term (current) use of anticoagulants; W22.8XXA Striking against or struck by other objects, initial encounter; X50.1XXA Overexertion from prolonged static or awkward postures, initial encounter
CPT/HCPCS: 73562-RT; 73700; 96374; 96375; 99284-25; A9270; J1885; J2270

== ENCOUNTER → 2021-08-16 | Outpatient (CLI) | payer MEDICARE, BC | END | disposition home or self-care (01) | LOC: LAB SHORT 13:40 | DX: L81.4 Other melanin hyperpigmentation (principal) | CPT/HCPCS: 88305 ==

== ENCOUNTER → 2021-10-30 | Outpatient (CLI) | payer MEDICARE, BC | END | disposition home or self-care (01) | LOC: LAB SHORT 13:50 | DX: R30.0 Dysuria (principal) | CPT/HCPCS: 87077; 87086; 87186 ==

== ENCOUNTER → 2021-11-14 | Outpatient (CLI) | payer MEDICARE, BC | END | disposition home or self-care (01) | LOC: LAB SHORT 13:00 | DX: R30.0 Dysuria (principal) | CPT/HCPCS: 87077; 87086; 87186 ==

== ENCOUNTER 2023-11-27 14:30 | Emergency (ER) | payer MEDICARE, BC ==
[~2023-11-27] VITALS: Ht 160 cm; Wt 90.7 kg
[2023-11-27 14:45] VITALS: BP 145/91
[2023-11-27] MEDS ORDERED: AMOCLA875 PO (15:28)
[2023-11-27] MEDS ORDERED: MECL12.5 PO (15:28)
== END 2023-11-27 15:49 | disposition home or self-care (01) ==
LOC: ER 14:30
DX: R42 Dizziness and giddiness (principal); J32.9 Chronic sinusitis, unspecified; H92.03 Otalgia, bilateral; I10 Essential (primary) hypertension; I48.91 Unspecified atrial fibrillation; E05.90 Thyrotoxicosis, unspecified without thyrotoxic crisis or storm; I25.2 Old myocardial infarction; I25.10 Atherosclerotic heart disease of native coronary artery without angina pectoris; Z91.041 Radiographic dye allergy status; Z79.02 Long term (current) use of antithrombotics/antiplatelets; Z79.01 Long term (current) use of anticoagulants; Z79.82 Long term (current) use of aspirin; Z79.899 Other long term (current) drug therapy
CPT/HCPCS: 99282; A9270

== ENCOUNTER 2024-06-01 15:49 | Inpatient (IN) | payer MEDICARE, BC ==
[~2024-06-01] VITALS: Ht 160 cm; Wt 86.2 kg
[~2024-06-01 15:49] MED LIST changes: +AMOCLA875 PO; +MECL12.5 PO; +SULTRIDS PO
[2024-06-01 16:45] LABS: BASOPHILS ABSOLUTE AUTO 0.04 K/mm3 (0.00-0.23); BASOPHILS PERCENT AUTO 1 % (0-2); EOSINOPHILS ABSOLUTE AUTO 0.19 K/mm3 (0.00-0.68); EOSINOPHILS PERCENT AUTO 2 % (0-6); Hematocrit 42.1 % (37.0-53.0); Hemoglobin 14.5 g/dL (13.5-17.5); IMMATURE GRAN ABSOLUTE AUTO 0.07 K/mm3 (0.00-0.10); IMMATURE GRAN PERCENT AUTO 1 % (0-1); LYMPHOCYTES ABSOLUTE AUTO 1.46 K/mm3 (0.84-5.20); LYMPHOCYTES PERCENT AUTO 19 % (21-46); MONOCYTES ABSOLUTE AUTO 0.71 K/mm3 (0.16-1.47); MONOCYTES PERCENT AUTO 9 % (4-13); Mean Corpuscular HGB 31.2 pg (26.0-34.0); Mean Corpuscular HGB Conc 34.4 g/dL (31.5-36.5); Mean Corpuscular Volume 91 fL (80-100); Mean Platelet Volume 9.9 fL (9.1-12.4); NEUTROPHILS ABSOLUTE AUTO 5.35 K/mm3 (1.96-9.15); NEUTROPHILS PERCENT AUTO 68 % (41-73); Platelet Count 159 K/mm3 (150-400); RDW Coefficient Variation 13.2 % (11.7-14.2); RDW Standard Deviation 43.8 fL (35.1-46.3); Red Blood Cell Count 4.65 M/mm3 (4.30-5.90); White Blood Cell Count 7.82 K/mm3 (4.00-11.30)
[2024-06-01 17:06] LABS: Albumin, Blood 3.3 g/dL (3.4-5.0); Albumin/Globulin Ratio 0.8 (0.8-1.8); Bilirubin, Total 0.7 mg/dL (0.1-1.0); Bun/Creatinine Ratio 22.2 (12.0-20.0); Calcium, Blood 9.5 mg/dL (8.5-10.1); Creatinine, Blood 1.08 mg/dL (0.60-1.20); Globulin, Blood 4.3 g/dL (2.2-4.0); Potassium, Blood 5.3 mmol/L (3.5-5.5); Total Protein, Blood 7.6 g/dL (6.4-8.2)
[2024-06-01] MEDS ORDERED: Crestor40 MG PO (17:50)
[2024-06-01] MEDS ORDERED: LISI5 PO (17:50)
[2024-06-01] MEDS ORDERED: XARELTO20 MG PO (17:51)
[2024-06-01] MEDS ORDERED: OMEP20ER PO (17:51)
[2024-06-01] MEDS ORDERED: EFUDEX40 GM TOP (20:05)
[2024-06-01] MEDS ORDERED: HydrALAZINE HCl 20 MG / ML 1ML Vial IV PRN (20:15)
[2024-06-01] MEDS ORDERED: Ondansetron HCl 2 MG / ML 2ML Vial IV PRN (20:15)
[2024-06-01] MEDS ORDERED: OxyCODONE HCL 5 MG TAB PO PRN (20:15)
[2024-06-01] MEDS ORDERED: Metoprolol Tartrate 1 MG/ML 5 ML VIAL IV PRN (20:20)
[2024-06-01] MEDS ORDERED: CeFAZolin Sodium 2,000 MG in NS 100 ML IV SCH (21:00)
[2024-06-01 21:47] VITALS: BP 141/100
[2024-06-01 22:31] VITALS: BP 114/54
--- NOTE | 2024-06-01 22:51 | NUR ---
ADMIT NOTE HANDOFF RECEIVED FROM UTILITY SUPERVISOR BOAT AND PLANTALYSIA YUEN. PT ARRIVED VIA WC. PT ORIENTED TO UNIT. CALL BUTTON WITHIN REACH. BED ALARM IS ACTIVE. RT HAS SET UP HOME CPAP.
[2024-06-02 03:01] VITALS: BP 119/78
--- NOTE | 2024-06-02 04:05 | NUR ---
SHIFT SUMMARY ADMITTED FROM THE ER THIS SHIFT FOR RLE CELLULITIS. FULL CODE. PLAN IS FOR IV ANTIB. HE IS ON RA, HOME CPAP @ HS. REGULAR DIET. 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 STAND/PIVOT TO BSC. PAIN MEDICATION GIVEN THIS SHIFT. CELLULITIC AREA IS MARKED WITH A SKIN MARKER. BLOOD CULTURES HAVE BEEN DRAWN. HE IS ON XARELTO.
[2024-06-02] MEDS ORDERED: Pantoprazole Sodium 40 MG Tab PO SCH (06:00)
[2024-06-02 07:33] VITALS: BP 136/86
[2024-06-02] MEDS ORDERED: Clopidogrel Bisulfate 75 MG Tab PO SCH (09:00)
[2024-06-02] MEDS ORDERED: Lisinopril 20 MG Tab PO SCH (09:00)
[2024-06-02] MEDS ORDERED: Metoprolol Succinate 50 MG TABCR PO SCH ×2 (09:00)
[2024-06-02] MEDS ORDERED: Gabapentin 300 MG Cap PO SCH (09:00)
[2024-06-02] MEDS ORDERED: Atorvastatin 40 MG Tab PO SCH (09:00)
[2024-06-02] MEDS ORDERED: Rivaroxaban 10 MG Tab PO SCH (09:00)
[2024-06-02] MEDS ORDERED: HydroCHLOROthiazide 25 mg Tab PO SCH (09:00)
[2024-06-02] MEDS ORDERED: Allopurinol 100 MG Tab PO SCH (09:00)
[2024-06-02] MEDS ORDERED: Lisinopril 5 MG Tab PO SCH (09:00)
[2024-06-02 10:09] LABS: BASOPHILS ABSOLUTE AUTO 0.07 K/mm3 (0.00-0.23); BASOPHILS PERCENT AUTO 1 % (0-2); EOSINOPHILS PERCENT AUTO 4 % (0-6); Hematocrit 43.8 % (37.0-53.0); Hemoglobin 14.9 g/dL (13.5-17.5); IMMATURE GRAN ABSOLUTE AUTO 0.08 K/mm3 (0.00-0.10); IMMATURE GRAN PERCENT AUTO 1 % (0-1); LYMPHOCYTES ABSOLUTE AUTO 1.43 K/mm3 (0.84-5.20); LYMPHOCYTES PERCENT AUTO 20 % (21-46); MONOCYTES ABSOLUTE AUTO 0.66 K/mm3 (0.16-1.47); MONOCYTES PERCENT AUTO 9 % (4-13); Mean Corpuscular HGB 31.6 pg (26.0-34.0); Mean Corpuscular Volume 93 fL (80-100); Mean Platelet Volume 9.9 fL (9.1-12.4); NEUTROPHILS ABSOLUTE AUTO 4.63 K/mm3 (1.96-9.15); NEUTROPHILS PERCENT AUTO 65 % (41-73); Platelet Count 145 K/mm3 (150-400); RDW Coefficient Variation 13.1 % (11.7-14.2); RDW Standard Deviation 44.4 fL (35.1-46.3); Red Blood Cell Count 4.72 M/mm3 (4.30-5.90); White Blood Cell Count 7.17 K/mm3 (4.00-11.30)
[2024-06-02 10:26] LABS: Bun/Creatinine Ratio 22.3 (12.0-20.0); Calcium, Blood 8.8 mg/dL (8.5-10.1); Creatinine, Blood 0.99 mg/dL (0.60-1.20); Potassium, Blood 4.5 mmol/L (3.5-5.5)
[2024-06-02 16:38] VITALS: BP 104/63
--- NOTE | 2024-06-02 17:40 | NUR ---
NO ACUTE CHANGES. PT AOX4 AND COOPERATIVE OF CARE. PT IS ABLE TO MAKE NEEDS KNOWN. PT'S R LEG CELLULITIS APPEARS TO BE IMPROVING AND SWELLING HAS GONE DOWN MAKING SKIN HAVE SOME WRINKLES. PT DOES WELL CAN STAND AT BEDSIDE WITH 1 PERSON. PT HAS CALL LIGHT WITHIN REACH WILL CONTINUE TO MONITOR.
[2024-06-02] MEDS ORDERED: NS 250 ML IV PRN (19:20)
[2024-06-02 19:30] VITALS: BP 106/65
[2024-06-03 04:05] VITALS: BP 124/72
--- NOTE | 2024-06-03 06:12 | NUR ---
END OF SHIFT SUMMARY PT A&OX4, BASELINE SHORT TERM MEMORY LOSS. PT ABLE TO TOLERATE AMBULATING PAIN AND SWELLING TO RLE HAS DECREASED. UP WITH SBA WITH FWW. MEDICATED FOR PAIN WITH GOOD RELIEF. NO ACUTE EVENTS OVERNIGHT.
[2024-06-03 07:10] VITALS: BP 129/95
[2024-06-03] MEDS ORDERED: AMOX-CLAV 875-1 EAC5 PO (12:42)
[2024-06-03] MEDS ORDERED: OXAYDO5 M1 PO (12:45)
[2024-06-03] MEDS ORDERED: VISBIOME 112.51 EACH PO (12:46)
--- NOTE | 2024-06-03 14:17 | NUR ---
DISCHARGE SUMMARY PT DC THIS SHIFT DC INSTRUCTION AND EDUCATION GONE OVER WITH PT AND PT . BOTH HAVE STATED UNDERSTANDING OF INSTRUCTIONS. PT LEFT MEDICAL FLOOR VIA WHEEL CHAIR ACCOMPANIED BY PRODUCT LINE MANAGER AND PT . PT LEFT VIA PRIVATE VEHICLE.
== END 2024-06-03 14:30 | disposition home or self-care (01) | DRG 603 ==
LOC: ER 15:49 → MEDS 18:31
PROVIDERS: Nurse Practitioner Acute Care; Student in an Organized Health Care Education/Training Program; ADMIT Hospitalist
DX: L03.115 Cellulitis of right lower limb (principal); I48.20 Chronic atrial fibrillation, unspecified; I25.10 Atherosclerotic heart disease of native coronary artery without angina pectoris; I10 Essential (primary) hypertension; G47.33 Obstructive sleep apnea (adult) (pediatric); E78.5 Hyperlipidemia, unspecified; M10.9 Gout, unspecified; K21.9 Gastro-esophageal reflux disease without esophagitis; Z79.01 Long term (current) use of anticoagulants; Z86.73 Personal history of transient ischemic attack (TIA), and cerebral infarction without residual deficits; Z79.899 Other long term (current) drug therapy; E05.90 Thyrotoxicosis, unspecified without thyrotoxic crisis or storm; I25.2 Old myocardial infarction; Z79.82 Long term (current) use of aspirin; Z79.51 Long term (current) use of inhaled steroids; Z79.02 Long term (current) use of antithrombotics/antiplatelets; Z91.041 Radiographic dye allergy status
CPT/HCPCS: 36415; 80048; 80053; 83605; 85025; 87040; 93971; 94762; 96365; 99284-25; A9270; J0690